=== PATIENT | male | born 1965 ===

== ENCOUNTER → 2018-11-03 | Outpatient (CLI) | payer OTHER ==
[~2018-11-03] MED LIST: ALBUTEROL SULFATE 2.5 MG/3 ML NEBU. NEB ONE
== END | disposition home or self-care (01) ==
LOC: PF 10:07
PROVIDERS: ATTEND Physical Medicine & Rehabilitation
DX: J44.9 Chronic obstructive pulmonary disease, unspecified (principal); I21.9 Acute myocardial infarction, unspecified
CPT/HCPCS: 94060; 94640; 94729; J7613